=== PATIENT | male | born 1995 | race Caucasian/White ===

== ENCOUNTER 2022-03-31 06:05 | Emergency (ER) | payer OTHER ==
[~2022-03-31] VITALS: Ht 177.8 cm; Wt 83.9 kg
[~2022-03-31 06:05] MED LIST: AMOX500 PO; PROM25 PO; Zofran Odt4 MG SL
[2022-03-31] MEDS ORDERED: AMOCLA875 PO (07:50)
[2022-03-31] MEDS ORDERED: PRED20 PO (07:50)
== END 2022-03-31 08:16 | disposition home or self-care (01) ==
LOC: ER 06:05
DX: K04.7 Periapical abscess without sinus (principal); F17.210 Nicotine dependence, cigarettes, uncomplicated; Z88.5 Allergy status to narcotic agent
CPT/HCPCS: A9270

== ENCOUNTER → 2023-05-31 | Outpatient (CLI) | payer SELFPAY ==
[~2023-05-31] MED LIST changes: +AMOCLA875 PO; +PRED20 PO
[2023-06-02 00:09] LABS: CHLAMYDIA TRACHOMATIS, NAA Negative (Negative)
[2023-06-03 01:10] LABS: HIV AB/P24 AG SCREEN Non Reactive (Non Reactive)
== END | disposition home or self-care (01) ==
LOC: LAB 16:57 → LAB SHORT 16:57
PROVIDERS: Physician Assistant
DX: Z20.9 Contact with and (suspected) exposure to unspecified communicable disease (principal)
CPT/HCPCS: 86592; 87389; 87491; 87591